=== PATIENT | male | born 1975 | race Caucasian/White ===

== ENCOUNTER → 2016-05-05 | Outpatient (CLI) | payer BC | LOC: EMI 15:52 | DX: M25.511 Pain in right shoulder (principal); S46.011A Strain of muscle(s) and tendon(s) of the rotator cuff of right shoulder, initial encounter | CPT/HCPCS: 73221 ==

== ENCOUNTER → 2020-12-01 | Outpatient (CLI) | payer BC | LOC: EXRD 11:03 | DX: N20.0 Calculus of kidney (principal); N28.1 Cyst of kidney, acquired | CPT/HCPCS: 76775 ==

== ENCOUNTER → 2020-12-15 | Outpatient (CLI) | payer BC | LOC: KOH-I 08:32 | DX: N20.0 Calculus of kidney (principal) | CPT/HCPCS: 74176 ==